=== PATIENT | female | born 1975 | race Caucasian/White ===

== ENCOUNTER → 2020-05-07 | Outpatient (CLI) | payer OTHER | LOC: LAB 15:09 | PROVIDERS: ATTEND Anesthesiology | DX: U07.1 COVID-19 (principal) ==

== ENCOUNTER → 2020-10-01 | Outpatient (CLI) | payer OTHER | LOC: LAB 08:44 | PROVIDERS: ATTEND Anesthesiology | DX: Z01.812 Encounter for preprocedural laboratory examination (principal); Z20.822 Contact with and (suspected) exposure to COVID-19 ==